=== PATIENT | male | born 1980 ===

== ENCOUNTER 2018-10-23 15:06 | Emergency (ER) | payer OTHER ==
[2018-10-23 15:22] VITALS: RESP 18; TEMP 97.6
--- NOTE | 2018-10-23 15:29 | ED PDOC ---
Arrival/HPI - General Chief Complaint: Abdominal Pain Historian: Patient - History of Present Illness Narrative History of Present Illness (Text): 10/23/18 15:38 38 y/o male, no significant pmh, nkda, c/o lt. lower quadrant pain x 1 month with no fall or trauma. Pt. stated he has cramping and aching pain, on and off, no nausea/vomiting, no diarrhea, no rash, no dizziness, no change in vision, no numbness or tingling, no other medical or psychological complaints. Past Medical History - Provider Review Nursing Documentation Reviewed: Yes - Psychiatric Hx Substance Use: No Family/Social History - Physician Review Nursing Documentation Reviewed: Yes Family/Social History: Unknown Family HX Smoking Status: Heavy Smoker > 10 Cigarettes Daily Hx Alcohol Use: Yes Frequency of alcohol use: Socially Hx Substance Use: No Allergies/Home Meds Allergies/Adverse Reactions: Allergies shrimp Allergy (Verified 10/23/18 15:22) ANGIOEDEMA Review of Systems - Review of Systems Constitutional: absent: Fatigue, Fevers Eyes: absent: Vision Changes ENT: absent: Hearing Changes Respiratory: absent: SOB, Cough Cardiovascular: absent: Chest Pain Gastrointestinal: Abdominal Pain. absent: Nausea, Vomiting Musculoskeletal: absent: Arthralgias, Back Pain Skin: absent: Rash, Pruritis Psychiatric: absent: Anxiety, Depression, Suicidal Ideation Physical Exam Vital Signs Reviewed: Yes Vital Signs Temp Pulse Resp BP Pulse Ox 10/23/18 15:20 97.6 F 89 18 116/78 99 Temperature: Afebrile Blood Pressure: Normal Pulse: Regular Respiratory Rate: Normal Appearance: Positive for: Well-Appearing, Non-Toxic, Comfortable Pain Distress: Mild Mental Status: Positive for: Alert and Oriented X 3 - Systems Exam Head: Present: Atraumatic, Normocephalic Pupils: Present: PERRL Extroacular Muscles: Present: EOMI Conjunctiva: Present: Normal Mouth: Present: Moist Mucous Membranes Neck: Present: Normal Range of Motion Respiratory/Chest: Present: Clear to Auscultation, Good Air Exchange. No: Respiratory Distress, Accessory Muscle Use Cardiovascular: Present: Regular Rate and Rhythm, Normal S1, S2. No: Murmurs Abdomen: Present: Tenderness (LLQ region), Normal Bowel Sounds. No: Distention, Peritoneal Signs, Rebound, Guarding, McBurney's Point Tender, Rovsing's Sign Present, Scars Back: Present: Normal Inspection. No: CVA Tenderness, Midline Tenderness, Paraspinal Tenderness, Pain with Leg Raise, Decubitus Ulcer Upper Extremity: Present: Normal Inspection. No: Cyanosis, Edema Lower Extremity: Present: Normal Inspection, NORMAL PULSES, Normal ROM, Neurovascularly Intact, Capillary Refill < 2 s. No: Edema, Tenderness, Swelling, Deformity Neurological: Present: GCS=15, CN II-XII Intact, Speech Normal, Motor Func Grossly Intact, Normal Cerebellar Funct, Gait Normal, Memory Normal Skin: Present: Warm, Dry, Normal Color. No: Rashes Psychiatric: Present: Alert, Oriented x 3, Normal Insight, Normal Concentration Medical Decision Making ED Course and Treatment: 10/23/18 15:39 Diverticulitis vs. diverticulosis vs. ureter stone vs. pancreatitis vs. dehydration vs. UTI -Labs -CT abdomen and pelvis -IVF/toradol -Observe and reassess 10/23/18 18:31 -CT abdomen and pelvis Segmental thickening of the descending colon with faint pericolonic inflammatory changes likely very mild colitis. Large bladder diverticulum. Profound hepatic steatosis. -Labs are non significant -UA show no UTI -Pt. feels well with the pain med. -I discussed the labs and radiology results with the patient, discussed about the ciprofloxacin and flagyl which I discussed the adverse/side effect of the possible prolong QT and or possible achilles tendon ruptures, advised avoid gym/exercise while taking ciprofloxacin, avoid alcohol while taking flagyl. -Discharge home with ciprofloxacin, flagyl, pepcid, motrin, high fiber diet, follow up with your own pmd and GI/urologist within 2 days, advised avoid gym/exercise while taking ciprofloxacin, avoid alcohol while taking flagyl, return to the ER for any new or worsening signs or symptoms. - RAD Interpretation Radiology Orders: Date of service: 10/23/2018 PROCEDURE: CT Abdomen and Pelvis with contrast HISTORY: LLQ pain x 1 month COMPARISON: None. TECHNIQUE: Intravenous contrast dose: 146 cc Omnipaque 350. Radiation dose: Total exam DLP = 713.80 mGy-cm. This CT exam was performed using one or more of the following dose reduction techniques: Automated exposure control, adjustment of the mA and/or kV according to patient size, and/or use of iterative reconstruction technique. FINDINGS: LOWER THORAX: Unremarkable. LIVER: Hepatic steatosis. No focal masses. No intrahepatic bile duct dilatation or perihepatic ascites. Focal fatty sparing adjacent to the falciform ligament. GALLBLADDER AND BILE DUCTS: Unremarkable. PANCREAS: Unremarkable. No gross lesion or ductal dilatation. SPLEEN: Unremarkable. ADRENALS: Unremarkable. No mass. KIDNEYS AND URETERS: Unremarkable. No hydronephrosis. No solid mass. VASCULATURE: Unremarkable. No aortic aneurysm. No atherosclerotic calcification or mural plaque present. BOWEL: Short segment of luminal thickening of the descending colon with pericolonic inflammatory change. This may represent very mild descending colitis. APPENDIX: Normal appendix. PERITONEUM: Unremarkable. No free fluid. No free air. LYMPH NODES: Unremarkable. No enlarged lymph nodes. BLADDER: Posterior and right lateral bladder diverticulum. This measures 3.2 x 5.6 cm. The opening between the [place] bladder and the diverticulum measures 8 mm. REPRODUCTIVE: Unremarkable. BONES: No acute fracture. OTHER FINDINGS: None. IMPRESSION: Segmental thickening of the descending colon with faint pericolonic inflammatory changes likely very mild colitis. Large bladder diverticulum. Profound hepatic steatosis. 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 Disposition/Present on Arrival - Present on Arrival Any Indicators Present on Arrival: No History of DVT/PE: No History of Uncontrolled Diabetes: No Urinary Catheter: No History of Decub. Ulcer: No History Surgical Site Infection Following: None - Disposition Have Diagnosis and Disposition been Completed?: Yes Diagnosis: Colitis, Bladder diverticulum, Hepatic steatosis Disposition: HOME/ ROUTINE Disposition Time: 18:34 Patient Plan: Discharge Condition: IMPROVED Additional Instructions: -Discharge home with ciprofloxacin, flagyl, pepcid, motrin, high fiber diet, fo llow up with your own pmd and GI/urologist within 2 days, advised avoid gym/exercise while taking ciprofloxacin, avoid alcohol while taking flagyl, return to the ER for any new or worsening signs or symptoms. Prescriptions: Ciprofloxacin/Ciprofloxa HCl [Ciprofloxacin] 500 mg PO BID #14 tab Famotidine [Pepcid] 20 mg PO BID #20 tab Ibuprofen [Motrin Tab] 600 mg PO QID PRN #30 tab PRN Reason: Other Metronidazole [Flagyl] 500 mg PO TID #24 tab Referrals: Perry Sims MD [Staff Provider] - Follow up with primary Pool Hughes MD [Staff Provider] - Follow up with primary [facility] [place] - Follow up with primary Forms: [employer] (Welsh), WORK NOTE
[2018-10-23] MEDS ORDERED: Sodium Chloride 0.9% 1,000 ML IV STA (15:37)
[2018-10-23 16:08] LABS: BASO # 0.03 K/mm3 (0.0-2.0); BASO % 0.3 % (0.0-3.0); EOS # 0.1 (0.0-0.7); EOS % 1.3 % (1.5-5.0); HEMOGLOBIN 14.8 g/dL (14.0-18.0); LYMPH # 2.5 (1.2-3.4); LYMPH % 26.8 % (22.0-35.0); MEAN CELL VOLUME 92.7 fl (80.0-105.0); MEAN CORPUSCULAR HGB CONC 33.5 g/dl (31.0-37.0); MEAN PLATELET VOLUME 10.5 fl (7.0-11.0); MONO # 0.6 (0.1-0.6); RBC 4.77 10^6/uL (3.5-6.1); RED CELL DISTRIBUTION WIDTH 13.3 % (11.5-14.5); WHITE BLOOD COUNT 9.2 10^3/uL (4.5-11.0)
[2018-10-23 16:34] LABS: ALB/GLOB RATIO 1.4 (1.1-1.8); ALBUMIN 4.1 g/dL (3.0-4.8); ALT/SGPT 124 U/L (7-56); AST/SGOT 60 U/L (17-59); BLOOD UREA NITROGEN 16 mg/dL (7-21); CALCIUM 9.2 mg/dL (8.4-10.5); GFR NON-AFRICAN AMERICAN > 60; LIPASE 111 U/L (23-300)
[2018-10-23 16:34] LABS: URINE BILIRUBIN NEGATIVE (NEGATIVE); URINE BLOOD NEGATIVE (NEGATIVE); URINE GLUCOSE (UA) NEGATIVE (NEGATIVE); URINE LEUKOCYTE ESTERASE NEGATIVE Leu/uL (NEGATIVE); URINE PROTEIN NEGATIVE mg/dL (<30 mg/dL); URINE UROBILINOGEN 0.2 E.U./dL (<1 E.U./dL)
[2018-10-23 16:35] LABS: URINE COLOR YELLOW (YELLOW)
[2018-10-23 16:36] LABS: URINE APPEARANCE CLEAR (CLEAR)
[2018-10-23] MEDS ORDERED: Iodixanol 320 mg/ml 150 ml Bottle IV ONE (17:11)
--- NOTE | 2018-10-23 18:16 | CT ---
Date of service: 10/23/2018 PROCEDURE: CT Abdomen and Pelvis with contrast HISTORY: LLQ pain x 1 month COMPARISON: None. TECHNIQUE: Intravenous contrast dose: 146 cc Omnipaque 350. Radiation dose: Total exam DLP = 713.80 mGy-cm. This CT exam was performed using one or more of the following dose reduction techniques: Automated exposure control, adjustment of the mA and/or kV according to patient size, and/or use of iterative reconstruction technique. FINDINGS: LOWER THORAX: Unremarkable. LIVER: Hepatic steatosis. No focal masses. No intrahepatic bile duct dilatation or perihepatic ascites. Focal fatty sparing adjacent to the falciform ligament. GALLBLADDER AND BILE DUCTS: Unremarkable. PANCREAS: Unremarkable. No gross lesion or ductal dilatation. SPLEEN: Unremarkable. ADRENALS: Unremarkable. No mass. KIDNEYS AND URETERS: Unremarkable. No hydronephrosis. No solid mass. VASCULATURE: Unremarkable. No aortic aneurysm. No atherosclerotic calcification or mural plaque present. BOWEL: Short segment of luminal thickening of the descending colon with pericolonic inflammatory change. This may represent very mild descending colitis. APPENDIX: Normal appendix. PERITONEUM: Unremarkable. No free fluid. No free air. LYMPH NODES: Unremarkable. No enlarged lymph nodes. BLADDER: Posterior and right lateral bladder diverticulum. This measures 3.2 x 5.6 cm. The opening between the [place] bladder and the diverticulum measures 8 mm. REPRODUCTIVE: Unremarkable. BONES: No acute fracture. OTHER FINDINGS: None. IMPRESSION: Segmental thickening of the descending colon with faint pericolonic inflammatory changes likely very mild colitis. Large bladder diverticulum. Profound hepatic steatosis.
[2018-10-23 19:03] VITALS: BP 114/78; PULSE 90; O2SAT 98
== END 2018-10-23 19:03 | disposition home or self-care (01) ==
LOC: ED 15:06
DX: N32.3 Diverticulum of bladder (principal); K52.9 Noninfective gastroenteritis and colitis, unspecified; K76.0 Fatty (change of) liver, not elsewhere classified; F17.210 Nicotine dependence, cigarettes, uncomplicated
CPT/HCPCS: 74177; 80053; 81003; 83690; 85025; 96361; 96374; 99283; J1885; J7030; Q9967

== ENCOUNTER 2018-10-29 09:41 | Outpatient (CLI) | payer OTHER | END 2018-10-29 09:42 | disposition home or self-care (01) | LOC: LAB 09:41 ==

== ENCOUNTER 2018-11-12 09:11 | Outpatient (CLI) | payer OTHER | END 2018-11-12 09:12 | disposition home or self-care (01) | LOC: RAD 09:11 ==